=== PATIENT | female | born 1960 | race Caucasian/White ===

== ENCOUNTER 2020-12-18 14:24 | Emergency (ER) | payer BC, OTHER, SELFPAY ==
[2020-12-18] VITALS (8 sets, daily range): BP systolic 120–166; BP diastolic 67–94; PULSE 65–76; RESP 18–20; TEMP 36.6–36.8; O2SAT 95–99; BMI 31.3; BMI 31.4
[2020-12-18 14:53] LABS: Apearance,Urine Clear (Clear); Color,Urine Orange (Yellow)
[2020-12-18 14:54] LABS: Protein,Urine 3+ (Negative); Specific Gravity, Urine <= 1.005 (1.005-1.030)
[2020-12-18 14:56] LABS: Glucose,Urine (UA) 1+ (Negative); Ketones,Urine SMALL (Negative)
[2020-12-18 14:57] LABS: Bilirubin,Urine 1+ (Negative); Blood, Urine Trace (Negative); Urobilinogen,Urine 4 EU/dl (0.2)
[2020-12-18 14:58] LABS: UTC Leukocyte Esterase,Urine 3+ (Negative); UTC Nitrate,Urine Positive (Negative)
--- NOTE | 2020-12-18 15:50 | CT_ITS ---
PROCEDURE: CT ABDOMEN PELVIS WO CON CLINICAL INDICATION: lower abd pain and back pain COMPARISON: CT ABDPELW CT ABD PELVIS W/ CONTRAST from 08/22/2016 TECHNIQUE: Axial images obtained with sagittal and coronal reformats. All CT scans at the facility use one or more dose reduction, viz: automated exposure control, ma/kV adjustment per patient size (including targeted exams where dose is matched to indication, i.e. head), or iterative reconstruction technique. FINDINGS: LOWER THORAX: No acute finding ABDOMEN & PELVIS: The gallbladder is contracted. The liver, spleen, adrenal glands, and pancreas have an unremarkable unenhanced appearance. There are small right parapelvic renal cysts. There is left nephrolithiasis with a 2 mm stone in the left mid renal area and 3 mm stones in the lower pole of the left kidney. There is mild left hydronephrosis and hydroureter secondary to a 5 mm stone at the left ureterovesical junction. No intestinal obstruction or free air. No evidence of appendicitis. There is a small umbilical hernia which contains fat. There is mild haziness of the mesenteric fat with a few scattered small mesenteric lymph nodes. This finding is not significantly changed. There is colonic diverticulosis but no evidence of diverticulitis. No pelvic mass or abnormal fluid collection. There are degenerative changes of the lumbar spine with 5 mm anterolisthesis of L4 on L5. IMPRESSION: Left nephrolithiasis with 5 mm left ureterovesical junction stone and mild left-sided obstructive uropathy. Dictated by: Lee Bustos MD 12/18/2020 17:38 Lee Bustos MD in [place] 12/18/2020 17:38
[2020-12-18 16:04] LABS: Basophils # 0.1 K/mm3 (0-0.2); Basophils % 0.7 % (0.1-2.0); Eosinophils # 0.1 K/mm3 (0.0-0.4); Eosinophils % 1.3 % (0.1-12.0); Hematocrit 41.9 % (37.0-47.0); Hemoglobin 13.5 g/dL (12.2-16.2); Lymphocytes % 24.9 % (10-50); Mean Corpuscular HGB Conc 32.2 g/dL (31.8-35.4); Mean Corpuscular Hemoglobin 31.8 pg (27.0-31.2); Mean Corpuscular Volume 98.8 fl (81-99); Mean Platelet Volume 8.4 fl (7.4-10.4); Monocytes # 0.4 K/mm3 (0.1-1.0); Monocytes % 5.2 % (1.7-9.3); Neutrophils # 5.4 K/mm3 (1.8-7.8); Neutrophils % 67.8 % (37.0-80.0); Platelet Count 210 K/mm3 (142-424); Red Blood Count 4.25 M/mm3 (4.20-5.40); Red Cell Distribution Width 12.9 % (11.5-17.5); White Blood Count 7.9 K/mm3 (4.8-10.8)
[2020-12-18 16:08] LABS: Alanine Aminotransferase 23 U/L (12-78); Albumin Level 4.1 g/dl (3.5-5.0); Albumin/Globulin Ratio 1.6 (1.1-1.8); Alkaline Phosphatase 81 U/L (38-126); Anion Gap 8.3 mEq/L (5-15); Aspartate Amino Transferase 33 U/L (14-36); Bilirubin,Total 0.3 mg/dl (0.2-1.3); Blood Urea Nitrogen 15 mg/dl (7-17); Calcium 9.6 mg/dl (8.4-10.2); Carbon Dioxide 30 mmol/L (22.0-30.0); Chloride 103 mmol/L (98-107); Creatinine Clearance Estimated 85 mL/min (50-200); Estimated Glomerular Filt Rate 64 ml/min (>60); GFR (African American) 77 ML/MIN (>60); Globulin 2.5 g/dL (1.3-3.2); Glucose 108 mg/dl (74-100); Potassium 4.3 mmoL/L (3.5-5.1); Sodium 137 mmol/L (136-145); Total Protein,Serum 6.6 g/dl (6.3-8.2)
--- NOTE | 2020-12-18 17:26 | HMH.EDGENADL ---
ED Disposition Clinical Impression: Ureteral calculus Disposition: Home, Self-Care Condition on Discharge: Good Instructions: DI for Kidney Stones Additional Instructions: Flomax as prescribed. [place] as needed for pain. Zofran as needed for nausea. Follow-up with Dr. Fox as soon as possible, call tomorrow to make appointment. Additional instructions for KIDNEY STONE (URETERAL CALCULUS): Drink plenty of fluids. Strain your urine and save any stones you catch. Return immediately if you develop a fever or have uncontrollable vomiting or uncontrollable pain. Additional instructions for CONTROLLED SUBSTANCES: You have been prescribed a medication that is a controlled substance. Controlled substances include pain medications known as opiates and sedative nerve medications known as benzodiazepines. Tramadol, fioricet, and gabapentin are also controlled substances. Some common opiates include: Codeine (such as Tylenol #3) Hydrocodone (Vicodin, Lortab, Lorcet, [place]) Oxycodone (Percocet, Percodan, Oxycodone, Oxy IR) Some common benzodiazepines include: Diazepam (Valium) Lorazepam (Ativan) Alprazolam (Xanax) Clonazepam (Klonopin) Oxazepam (Serax) All of these controlled substances are highly addictive and frequently abused. Misuse can and frequently does lead to addiction as well as overdose and . Medication should be stored in a locked cabinet or other secure storage unit. Do not store the medication in a motor vehicle. Short term supplies, 3 days or less, are prescribed because of the highly addictive nature of the medication. Any of the controlled substance medication NOT taken should be disposed of properly and NOT SAVED. The recommended method of disposing of unused medications is: Place the medicines in a sealable plastic bag. If the medicine is a solid, crush it or add water to dissolve it. Add something undesirable (cat litter, coffee grounds, etc.) Dispose of sealed bag in household trash Do not flush or pour unused medicines down a sink or drain. Controlled substances should not be shared, given away or sold. Because of the addictive nature and frequent abuse, these medications are sometimes stolen. These medications should be kept in a safe place where they cannot be stolen. Do not keep them in your car or purse. Lost or stolen prescriptions for controlled substances WILL NOT BE REFILLED in this emergency department, regardless of whether a police report was filed. Prescriptions: Hydrocod/Acet 5/325 mg [[place] 5/325mg tablet] 1 tab PO Q6HP PRN #10 tab PRN Reason: Pain Transmission Status: Received by [id number] Tamsulosin HCl [Flomax 0.4mg capsule] 0.4 mg PO HS #10 cap.er.24h Transmission Status: Pending to [id number] Ondansetron [Zofran 4mg ODT] 4 mg PO TIDP PRN #10 tab.rapdis PRN Reason: Nausea And Vomiting Transmission Status: Pending to [id number] Referrals: Elizabeth Wiley APRN [Primary Care Provider] - - Critical Care Critical Care Time: No Attestation: On 12/18/20, the high probability of a clinically significant, sudden or life threatening deterioration of the following system(s) required my full and direct attention, intervention and personal management. The time I documented below is in addition to time spent performing reported procedures but includes the following listed in this critical care notation. Medical Decision Making - Jeevan Inquiry Pt receiving controlled substance: No Vital Signs: 12/18/20 14:41 12/18/20 15:00 Temperature 98 F 98.0 F Temperature Source Oral Oral Pulse Rate [Right] 72 74 Respiratory Rate 18 18 Blood Pressure [Right Arm] 120/94 H 146/67 H Blood Pressure Mean [Right Arm] 102 93 Blood Pressure Source [Right Arm] Automatic Cuff Automatic Cuff Blood Pressure Position [Right Arm] Sitting Sitting 02 Sat by Pulse Oximetry 95 97 Oxygen Delivery Method Room Air - Lab Data Lab Results
[2020-12-18 17:55] LABS: Microscopic, Urine URINE MICROSCOPIC (MICROSCOPIC)
[2020-12-18 18:00] LABS: Appearance,Urine CLEAR (Clear); Bilirubin,Urine Negative (Negative); Blood, Urine TRACE-I (Negative); Color,Urine ORANGE (Yellow); Glucose,Urine (UA) TRACE (Negative); Ketones,Urine TRACE (Negative); Leukocyte Esterase,Urine Negative (Negative); Nitrate,Urine POSITIVE (Negative); PH,Urine 5.5 (5.0-8.5); Protein,Urine TRACE (Negative); Specific Gravity, Urine 1.025 (1.005-1.030)
[2020-12-18 18:43] LABS: Bacteria,Urine Trace /lpf; RBC,Urine Occasional #/hpf (0-3); WBC,Urine Occasional #/hpf (0-3)
== END 2020-12-18 19:38 | disposition home or self-care (01) ==
LOC: UTC 14:39 → ER 15:07
PROVIDERS: Nurse Practitioner Family; Emergency Provider Emergency Medicine; PCP Nurse Practitioner
DX: N20.1 Calculus of ureter (principal); Z87.442 Personal history of urinary calculi
CPT/HCPCS: 74176; 80053; 81001; 81003; 85025; 87086; 96374; 96375; 99283; J2405

== ENCOUNTER 2020-12-21 11:03 | Emergency (ER) | payer BC, OTHER, SELFPAY ==
[2020-12-21] VITALS (10 sets, daily range): BP systolic 134–192; BP diastolic 70–109; PULSE 56–72; RESP 18–20; TEMP 36.4; O2SAT 97–100; BMI 36.6
[2020-12-21 11:26] LABS: Microscopic, Urine URINE MICROSCOPIC (MICROSCOPIC)
[2020-12-21 11:29] LABS: Appearance,Urine SL CLOUDY (Clear); Bilirubin,Urine Negative (Negative); Blood, Urine TRACE-I (Negative); Chloride 98 mmol/L (98-107); Color,Urine YELLOW (Yellow); Glucose,Urine (UA) Negative (Negative); Ketones,Urine Negative (Negative); Leukocyte Esterase,Urine Negative (Negative); Nitrate,Urine Negative (Negative); PH,Urine 5.5 (5.0-8.5); Potassium 3.9 mmoL/L (3.5-5.1); Protein,Urine Negative (Negative); Sodium 132 mmol/L (136-145); Specific Gravity, Urine >= 1.030 (1.005-1.030); Urobilinogen,Urine 0.2 EU/dl (0.2)
--- NOTE | 2020-12-21 11:30 | CT_ITS ---
PROCEDURE: CT ABDOMEN PELVIS WO CON CLINICAL INDICATION: left infected stone? COMPARISON: CT ABDPELW CT ABD PELVIS W/ CONTRAST from 08/22/[address] ABDOMEN PELVIS WO CON from 12/18/2020 TECHNIQUE: Axial images obtained with sagittal and coronal reformats. All CT scans at the facility use one or more dose reduction, viz: automated exposure control, ma/kV adjustment per patient size (including targeted exams where dose is matched to indication, i.e. head), or iterative reconstruction technique. FINDINGS: Lower thorax: No acute finding ABDOMEN: Liver: No masses or biliary dilatation. Gallbladder: Nondistended. No radio opaque stones. Pancreas: No masses or peripancreatic fluid collections. Spleen: unremarkable Adrenals: unremarkable Kidneys/ureters: . Again noted is somewhat extrarenal pelvis left side but there is mild hydronephrotic change and mild hydroureter proximally. There are tiny nonobstructing calculi lower pole. The 5 mm calculus is again seen sitting at the UV junction. ABDOMEN & PELVIS: Stomach bowel: Nondistended. No obvious mass or thickening. The duodenal sweep and small bowel appear normal. There is a moderate amount stool in the cecum and ascending colon, left colon is decompressed. Peritoneum: No abnormal fluid collections. No obvious inflammatory changes. No free air. There is a tiny umbilical hernia containing fat only. Lymph nodes: No enlarged lymph nodes apparent. Vasculature: There is minimal arteriosclerotic calcification of the infrarenal aorta but there is no aneurysm. Bones: There is grade 1 anterior listhesis L4 on L5 with endplate sclerosis and the listhesis likely is secondary to hypertrophic facet changes at L4-5 and there are hypertrophic facet changes at L5-S1 as well. PELVIS: Reproductive: The uterus is normal in size and in the midline. Bladder: Urinary bladder is partially decompressed, there is no free fluid in the pelvis. Appendix: Not definitely identified but there are no pericecal inflammatory changes. IMPRESSION: Persistent distal ureteral calculus sitting just at the UV junction basically unchanged in appearance and location from the previous exam causing mild obstructive uropathy of the left kidney Dictated by: Dr. Siva Shannon MD 12/21/2020 12:38 Dr. Siva Shannon MD in [place] 12/21/2020 12:38
[2020-12-21 11:31] LABS: Basophils % 0.3 % (0.1-2.0); Eosinophils # 0.1 K/mm3 (0.0-0.4); Eosinophils % 0.7 % (0.1-12.0); Hemoglobin 13.8 g/dL (12.2-16.2); Lymphocytes # 1.9 K/mm3 (0.7-4.5); Mean Corpuscular HGB Conc 32.9 g/dL (31.8-35.4); Mean Corpuscular Hemoglobin 31.6 pg (27.0-31.2); Mean Corpuscular Volume 96.1 fl (81-99); Monocytes # 0.4 K/mm3 (0.1-1.0); Monocytes % 4.2 % (1.7-9.3); Neutrophils # 7.4 K/mm3 (1.8-7.8); Neutrophils % 75.8 % (37.0-80.0); Platelet Count 227 K/mm3 (142-424); Red Blood Count 4.37 M/mm3 (4.20-5.40); Red Cell Distribution Width 13.1 % (11.5-17.5); White Blood Count 9.8 K/mm3 (4.8-10.8)
[2020-12-21 11:32] LABS: Anion Gap 11.9 mEq/L (5-15); Blood Urea Nitrogen 12 mg/dl (7-17); Calcium 9.1 mg/dl (8.4-10.2); Carbon Dioxide 26 mmol/L (22.0-30.0); Creatinine Clearance Estimated 85 mL/min (50-200); Estimated Glomerular Filt Rate 85 ml/min (>60); GFR (African American) 103 ML/MIN (>60); Glucose 126 mg/dl (74-100)
--- NOTE | 2020-12-21 11:32 | HMH.EDGENADL ---
ED Disposition Clinical Impression: Ureteral calculus, Intractable pain Disposition: Xfer Short-Term Hosp Condition on Discharge: Fair - Critical Care Critical Care Time: No Attestation: On 12/21/20, the high probability of a clinically significant, sudden or life threatening deterioration of the following system(s) required my full and direct attention, intervention and personal management. The time I documented below is in addition to time spent performing reported procedures but includes the following listed in this critical care notation. Medical Decision Making - Medical Records Medical records reviewed: Yes: I reviewed the patient's medical records. - Jeevan Inquiry Pt receiving controlled substance: No Vital Signs: 12/21/20 11:04 12/21/20 11:28 Temperature 97.6 F Temperature Source Oral Pulse Rate [Left Radial] 66 Respiratory Rate 20 Blood Pressure [Right Arm] 174/82 H Blood Pressure Mean [Right Arm] 112 Blood Pressure Source [Right Arm] Automatic Cuff Blood Pressure Position [Right Arm] Sitting 02 Sat by Pulse Oximetry 100 Oxygen Delivery Method Room Air - Lab Data Lab results reviewed: Yes: I reviewed the patient's lab results. Lab Results 12/21/20 11:18: Urine Color Yellow, Urine Appearance Sl cloudy, Urine pH 5.5, Ur Specific [place] >= 1.030, Urine Protein Negative, Urine Glucose (UA) Negative, Urine Ketones Negative, Urine Blood Trace-i, Urine Nitrate Negative, Urine Bilirubin Negative, Urine Urobilinogen 0.2, Ur Leukocyte Esterase Negative, Urine RBC Occasional, Urine WBC None, Ur Squamous Epith Cells 5-10, Urine Bacteria 1+ 12/21/20 11:18: WBC 9.8, RBC 4.37, Hgb 13.8, Hct 42.0, MCV 96.1, MCH 31.6 H, MCHC 32.9, RDW 13.1, Plt Count 227, MPV 8.0, Neut % (Auto) 75.8, Lymph % (Auto) 19.0, Otoe % (Auto) 4.2, Eos % (Auto) 0.7, Baso % (Auto) 0.3, Neut # (Auto) 7.4, Lymph # (Auto) 1.9, Otoe # (Auto) 0.4, Eos # (Auto) 0.1, Baso # (Auto) 0.0 12/21/20 11:18: Sodium 132 L, Potassium 3.9, Chloride 98, Carbon Dioxide 26, Anion Gap 11.9, BUN 12, Creatinine 0.70 D, Estimated Creat Clear 85, Estimated GFR 85, Est GFR ( Amer) 103 D, Glucose 126 H, Calcium 9.1 Result diagrams: 12/21/20 11:18 12/21/20 11:18 Orders (Tests/Meds): ED MEDICATIONS Discontinued Medications Generic Name Dose Route Start Last Admin Trade Name Robe PRN Reason Stop Dose Admin Hydromorphone HCl 1 mg 12/21/20 12:35 12/21/20 12:36 Hydromorphone 2mg/Ml Syringe IV 12/21/20 12:36 1 mg ONCE ONE Administration Sodium Chloride 1,000 mls @ 999 mls/hr 12/21/20 11:15 12/21/20 11:35 Sod Chlor 0.9% 1000ml Bag IV 12/21/20 12:15 999 mls/hr .Q1H1M WILD Administration Ketorolac Tromethamine 30 mg 12/21/20 11:34 12/21/20 11:35 Ketorolac 30mg/Ml Vial IV 12/21/20 11:35 30 mg ONCE ONE Administration Morphine Sulfate 4 mg 12/21/20 11:14 12/21/20 11:35 Morphine 4mg/Ml Syringe IV 12/21/20 11:15 4 mg ONCE ONE Administration Ondansetron HCl 4 mg 12/21/20 11:14 12/21/20 11:35 Ondansetron 4mg/2ml Vial IV 12/21/20 11:15 4 mg ONCE ONE Administration Ondansetron HCl 4 mg 12/21/20 12:35 12/21/20 12:36 Ondansetron 4mg/2ml Vial IV 12/21/20 12:36 4 mg ONCE ONE Administration - CT Data CT Scan: Abdomen, Pelvis Time Received: 12:30 Findings Narrative: 5 mm left UVJ stone with no change in position Medical Decision Narrative: Patient with refractory pain secondary to 5 mm left UVJ stone. No signs of infection in the urine. Given Toradol initially, but ultimately requiring Dilaudid and still in pain. No urology coverage here for the weekend, so I have called Dr. Lemon at [facility]. He and Dr. Chavez accept the patient there for further management and treatment. General Adult HPI - General Chief complaint: PAIN Stated complaint: possible kidney stones Time Seen by Provider: 12/21/20 11:32 Mode of Arrival: Ambulatory Limitations: No Limitations
[2020-12-21 11:54] LABS: Bacteria,Urine 1+ /lpf; RBC,Urine Occasional #/hpf (0-3)
--- NOTE | 2020-12-21 12:37 | PC.NURSE ---
PAIN CAME BACK 10/10 W/ VOMITING PT WAS GIVEN DILAUDID 1MG AND BARRETT AND IS RESTING NOW AT BEDSIDE
--- NOTE | 2020-12-21 13:44 | PC.NURSE ---
UROLOGY AT [facility] HAS ACCEPTED PT WAITING ON THE HOSPITALIST TO CALL BACK
--- NOTE | 2020-12-21 14:28 | PC.NURSE ---
hospitalist at [facility] accepted pt, facesheet sent
[2020-12-21 15:11] LABS: Coronavirus 19 IgG Antibody Positive (Negative); Coronavirus 19 IgM Antibody Negative (Negative)
--- NOTE | 2020-12-21 18:14 | PC.NURSE ---
pt states pain is starting to come back , 01/05 new orders for pain meds
--- NOTE | 2020-12-21 18:44 | PC.NURSE ---
Report given to Emmett HARRIS at [facility]
--- NOTE | 2020-12-21 19:11 | PC.NURSE ---
Report given to urologist at [facility]
== END 2020-12-21 19:15 | disposition short-term general hospital (02) ==
PROVIDERS: Emergency Provider Emergency Medicine; PCP Nurse Practitioner
DX: N13.2 Hydronephrosis with renal and ureteral calculous obstruction (principal); Z87.442 Personal history of urinary calculi
CPT/HCPCS: 74176; 80048; 81001; 85025; 86328; 96365; 96375; 96376; 99284; J2405

== ENCOUNTER → 2022-06-19 07:12 | Outpatient (CLI) | payer BC, SELFPAY ==
[2022-06-19 18:43] LABS: Chol/HDL Ratio 4.2 (1-3.5); Cholesterol 269 mg/dl (140-200); HDL Cholesterol 64 mg/dl (40-60); Triglycerides 119 mg/dl (30-150); VLDL Cholesterol 24 mg/dL (0-40)
[2022-06-19 18:54] LABS: Direct LDL Cholesterol 174.23 mg/dL (100-129)
== END ==
PROVIDERS: PCP Nurse Practitioner; Visit Provider Nurse Practitioner
DX: E78.5 Hyperlipidemia, unspecified (principal)
CPT/HCPCS: 80061

== ENCOUNTER → 2022-10-07 08:50 | Outpatient (CLI) | payer BC, SELFPAY ==
[2022-10-07 19:31] LABS: Alanine Aminotransferase 23 U/L (12-78); Albumin Level 4.2 g/dl (3.5-5.0); Albumin/Globulin Ratio 1.8 (1.1-1.8); Alkaline Phosphatase 87 U/L (38-126); Anion Gap 10.4 mEq/L (5-15); Aspartate Amino Transferase 28 U/L (14-36); Bilirubin,Total 0.5 mg/dl (0.2-1.3); Blood Urea Nitrogen 12 mg/dl (7-17); Calcium 9.3 mg/dl (8.4-10.2); Carbon Dioxide 31 mmol/L (22.0-30.0); Chloride 102 mmol/L (98-107); Chol/HDL Ratio 4.2 (1-3.5); Cholesterol 242 mg/dl (140-200); Estimated Glomerular Filt Rate 85 ml/min (>60); GFR (African American) 102 ML/MIN (>60); Globulin 2.4 g/dL (1.3-3.2); Glucose 93 mg/dl (74-100); HDL Cholesterol 57 mg/dl (40-60); Potassium 4.4 mmoL/L (3.5-5.1); Sodium 139 mmol/L (136-145); Total Protein,Serum 6.6 g/dl (6.3-8.2); Triglycerides 146 mg/dl (30-150); VLDL Cholesterol 29 mg/dL (0-40)
[2022-10-07 19:41] LABS: Direct LDL Cholesterol 137.29 mg/dL (100-129)
[2022-10-07 20:01] LABS: Thyroid Stimulating Hormone 0.56 uIU/mL (0.465-4.68)
== END ==
PROVIDERS: PCP Nurse Practitioner; Visit Provider Nurse Practitioner
DX: E78.5 Hyperlipidemia, unspecified (principal); F41.8 Other specified anxiety disorders
CPT/HCPCS: 80053; 80061; 84443

== ENCOUNTER → 2022-12-25 06:35 | Outpatient (CLI) | payer BC, SELFPAY ==
[2022-12-25 19:16] LABS: Chol/HDL Ratio 4.1 (1-3.5); Cholesterol 285 mg/dl (140-200); HDL Cholesterol 70 mg/dl (40-60); Triglycerides 123 mg/dl (30-150); VLDL Cholesterol 25 mg/dL (0-40)
[2022-12-25 19:26] LABS: Direct LDL Cholesterol 174.65 mg/dL (100-129)
== END ==
PROVIDERS: PCP Nurse Practitioner; Visit Provider Nurse Practitioner
DX: E78.5 Hyperlipidemia, unspecified (principal)
CPT/HCPCS: 80061

== ENCOUNTER → 2023-04-10 11:00 | Outpatient (CLI) | payer BC, SELFPAY ==
[2023-04-10 18:33] LABS: Alanine Aminotransferase 25 U/L (12-78); Albumin Level 4.1 g/dl (3.5-5.0); Albumin/Globulin Ratio 1.9 (1.1-1.8); Alkaline Phosphatase 88 U/L (38-126); Anion Gap 9.7 mEq/L (5-15); Aspartate Amino Transferase 30 U/L (14-36); Bilirubin,Total 0.5 mg/dl (0.2-1.3); Blood Urea Nitrogen 17 mg/dl (7-17); Carbon Dioxide 30 mmol/L (22.0-30.0); Chloride 107 mmol/L (98-107); Chol/HDL Ratio 2.3 (1-3.5); Cholesterol 183 mg/dl (140-200); Estimated Glomerular Filt Rate 84 ml/min (>60); GFR (African American) 102 ML/MIN (>60); Globulin 2.2 g/dL (1.3-3.2); Glucose 95 mg/dl (74-100); HDL Cholesterol 81 mg/dl (40-60); Potassium 4.7 mmoL/L (3.5-5.1); Sodium 142 mmol/L (136-145); Total Protein,Serum 6.3 g/dl (6.3-8.2); Triglycerides 64 mg/dl (30-150); VLDL Cholesterol 13 mg/dL (0-40)
== END ==
PROVIDERS: PCP Nurse Practitioner; Visit Provider Nurse Practitioner
DX: E78.5 Hyperlipidemia, unspecified (principal)
CPT/HCPCS: 80053; 80061

== ENCOUNTER 2023-10-26 20:45 | Outpatient (CLI) | payer BC, SELFPAY ==
[2023-10-26 19:28] LABS: Basophils # 0.1 K/mm3 (0-0.2); Basophils % 0.9 % (0.1-2.0); Eosinophils # 0.1 K/mm3 (0.0-0.4); Eosinophils % 1.5 % (0.1-12.0); Hematocrit 47.2 % (37.0-47.0); Hemoglobin 15.5 g/dL (12.2-16.2); Lymphocytes # 2.4 K/mm3 (0.7-4.5); Lymphocytes % 35.4 % (10-50); Mean Corpuscular HGB Conc 32.7 g/dL (31.8-35.4); Mean Corpuscular Hemoglobin 32.6 pg (27.0-31.2); Mean Corpuscular Volume 99.4 fl (81-99); Mean Platelet Volume 9.7 fl (7.4-10.4); Monocytes # 0.4 K/mm3 (0.1-1.0); Monocytes % 5.3 % (1.7-9.3); Neutrophils # 3.8 K/mm3 (1.8-7.8); Neutrophils % 56.9 % (37.0-80.0); Platelet Count 285 K/mm3 (142-424); Red Blood Count 4.75 M/mm3 (4.20-5.40); Red Cell Distribution Width 13.1 % (11.5-17.5); White Blood Count 6.6 K/mm3 (4.8-10.8)
[2023-10-26 20:09] LABS: Alanine Aminotransferase 27 U/L (12-78); Albumin Level 3.9 g/dl (3.5-5.0); Albumin/Globulin Ratio 1.8 (1.1-1.8); Alkaline Phosphatase 74 U/L (38-126); Anion Gap 8.6 mEq/L (5-15); Aspartate Amino Transferase 29 U/L (14-36); Bilirubin,Total 0.5 mg/dl (0.2-1.3); Blood Urea Nitrogen 14 mg/dl (7-17); Calcium 9.5 mg/dl (8.4-10.2); Carbon Dioxide 34 mmol/L (22.0-30.0); Chloride 101 mmol/L (98-107); Cholesterol 186 mg/dl (140-200); Estimated Glomerular Filt Rate 84 ml/min (>60); GFR (African American) 102 ML/MIN (>60); Globulin 2.2 g/dL (1.3-3.2); Glucose 98 mg/dl (74-100); HDL Cholesterol 62 mg/dl (40-60); Potassium 4.6 mmoL/L (3.5-5.1); Sodium 139 mmol/L (136-145); Total Protein,Serum 6.1 g/dl (6.3-8.2); Triglycerides 78 mg/dl (30-150); VLDL Cholesterol 16 mg/dL (0-40)
[2023-10-26 20:22] LABS: Direct LDL Cholesterol 94.21 mg/dL (100-129)
[2023-10-26 20:59] LABS: Vitamin B12 793 pg/mL (239-931)
[2023-10-26 23:55] LABS: Hemoglobin A1C 5.5 % (4.0-6.0)
== END 2023-10-26 23:59 ==
LOC: LAB.DROPOF 20:45
PROVIDERS: PCP Nurse Practitioner; Visit Provider Nurse Practitioner
DX: E78.5 Hyperlipidemia, unspecified (principal); F41.8 Other specified anxiety disorders; Z79.899 Other long term (current) drug therapy
CPT/HCPCS: 80053; 80061; 82607; 83036; 84443; 85025

== ENCOUNTER 2024-03-30 11:11 | Outpatient (CLI) | payer MEDICARE, SELFPAY ==
[2024-03-30 20:46] LABS: Alanine Aminotransferase 25 U/L (12-78); Albumin Level 4.3 g/dl (3.5-5.0); Albumin/Globulin Ratio 1.6 (1.1-1.8); Alkaline Phosphatase 79 U/L (38-126); Aspartate Amino Transferase 31 U/L (14-36); Bilirubin,Total 0.7 mg/dl (0.2-1.3); Blood Urea Nitrogen 21 mg/dl (7-17); Calcium 9.8 mg/dl (8.4-10.2); Carbon Dioxide 32 mmol/L (22.0-30.0); Chloride 100 mmol/L (98-107); Chol/HDL Ratio 2.8 (1-3.5); Cholesterol 226 mg/dl (140-200); Estimated Glomerular Filt Rate 72 ml/min (>60); GFR (African American) 87 ML/MIN (>60); Globulin 2.7 g/dL (1.3-3.2); Glucose 106 mg/dl (74-100); HDL Cholesterol 81 mg/dl (40-60); Sodium 140 mmol/L (136-145); Triglycerides 124 mg/dl (30-150); VLDL Cholesterol 25 mg/dL (0-40)
[2024-03-30 20:57] LABS: Direct LDL Cholesterol 109.29 mg/dL (100-129)
== END 2024-03-30 23:59 | disposition home or self-care (01) ==
LOC: LAB.DROPOF 03-31 11:12
PROVIDERS: PCP Nurse Practitioner; Visit Provider Nurse Practitioner
DX: E78.5 Hyperlipidemia, unspecified (principal)
CPT/HCPCS: 80053; 80061

== ENCOUNTER 2024-09-20 13:00 | Outpatient (RCR) | payer MEDICARE, SELFPAY ==
--- NOTE | 2024-09-09 17:27 | HMH.PTOPEV ---
PT Outpatient Evaluation Rehab PT Outpatient Evaluation Start: 09/09/24 17:01 Freq: Status: Active Protocol: Document 09/09/24 17:02 KRYSTA (Rec: 09/09/24 17:27 KRYSTA [id number]) E-signed By Kentrell Van, PT Outpatient Therapy Subjective History Subjective History Patient is a 64 year old female presenting to outpatient PT with reports of LS pain with associated LLE radicular symptoms. Symptoms of insidious onset starting approx 1 month. No recent imaging to report. SI special tests negative. Comorbidities include hx of HL and R ankle ORIF. New diagnosis of cancer in past 12 No months? Chief Complaint Pain,Stiff,Paresthesia Symptom Type Ache,Sharp,Dull Symptoms Relieved By Rest/Positioning,Prescription Meds Prior Functional Limitations None Current Functional Limitations Lifting,Housework,Sleeping, Standing,Recreation Activity, Walking,Stairs,Balance,Bending /Stooping Symptom Description Constant but Variable, Intermittent Level of pain today (0-10) 6 Pain scale - at its best (0-10) 0 Pain scale - at its worst (0-10) 8 Lumbopelvic Eval Posture Thoracic Spine Posture Standing Position Increased Kyphosis Lumbar Spine Posture Standing Position Increased Lordosis Palapation tenderness bilateral lumbar spinal tenderness Yes: L 4-S1 Accessory Movement L4 bilateral L5 bilateral S1 bilateral Range of Motion Lumbar Spine Active Flexion Range of 72 Motion (degrees) Lumbar Spine Active Extension Range of 8 Motion (degrees) Left Lumbar Spine Lateral Flexion Active 10 Range of Motion (degrees) Right Lumbar Spine Lateral Flexion 8 Active Range of Motion (degrees) Lumbar Spine ROM Limitations Soft Tissue Tightness,Bony Restriction Manual Muscle Test Bilateral Knee Extension Strength Grade 4- Good- Knee Flexion Strength Grade 4 Good Hip Flexion Strength Grade 4- Good- Extensor Hallucis Longus Strength Grade 4 Good Ankle Dorsiflexion Strength Grade 4 Good Gastronemius/Soleus Strength Grade 4 Good Altered Sensation Left LE Dermatome Level L5,S1 Comment intermittent NT Special Tests Hip Sanchez (EBER) Test Positive Left,Positive Right Hip Jyoti Test Positive Left,Positive Right Hip Piriformis Test Positive Left,Positive Right Michael Test Positive Sacroiliac Joint Compression Test Negative Left,Negative Right Sacroiliac Joint Distraction Test Negative Left,Negative Right Lumbar [place] Deane Distraction Test/Manual Positive Traction Oswestry Index Section 1 Pain Intensity The pain comes and goes and is severe Section 2 Personal Care (Washing,Dresing) increase the pain, but I manage not to change my way of doing it Section 3 Lifting lifting heavy weights off the floor, but I can manage light to medium Section 4 Walking I cannot walk more than one mile wihtout increasing pain Section 5 Sitting I can sit in any chair for as long as I like Section 6 Standing I cannot stand more than 10 minutes without increasing pain Section 7 Sleeping Because of pain, my normal nights sleep is less than 2 hours sleep Section 8 Social Life Pain has restricted my social life and I do not go out often Section 9 Traveling Pain restricts me to short necessary journeys under 30 minutes Section 10 Changing Degreee of Pain My pain is neither getting better or worse Score and Risk Level Oswestry Sc 30 Oswestry Risk Level Severe Disability Outpatient Therapy Assessment Impairments Problems/Impairmments Palpation Tenderness,Impaired Range of Motion,Impaired Strength,Impaired Walking, Impaired Standing,Impaired Lifting,Impaired Household Care,Impaired Stair Climbing, Impaired Incline Stepping, Impaired Stepping on Uneven Surface,Impaired Bending, Impaired Recreational Activities,Impaired Work Activities,Subjective C/O Pain Prognosis Rehab Potential Good Clinical Impression Consistent with Diagnosis Yes Short Term Goals Number of Weeks 2 Decrease Subjective C/O Pain Yes: 5/10 at worst Patient to be Ind w/ HEP Yes Gallery Or Museum Attendant Goals Number of Weeks 4-6 Decreased Palpation Tenderness Yes: 1/4 Increase Range of Motion Yes: WNL Increase Strength Yes: BLE 5/5 Increase Ability to Walk Yes: 30 min without difficulty Increase Ability to Stand Yes: Improve Ability For Household Care Yes Improve Tolerance to Work Activities Yes Improve Oswestry Score Yes: mild disability Outpatient Therapy Plan of Care Treatment Plan May Include Therapeutic Exercise Including Home Yes Exercise Program Manual Therapy Techniques Yes Neuromuscular Re-education Yes Therapeutic Activities to Return to Yes Previous Functional/Work Level Gait Training Yes ADL/Self Care Education Yes Mechanical Traction Yes Dry Needling Yes Thermal Modalities Yes Electrical Stimulation Yes Ultrasound/Phonophoresis Yes Iontophoresis Yes Orthotics/Bracing/Splinting Yes Massage Yes Eval/Re-Eval Yes Frequency Times per week 2-3 Duration Number of Weeks 4-6 Addendums This patient is a candidate for social No or vocational rehab? Patient/Guardian verbally acknowledges Yes understanding of treatment program and consents to further treatment? Patient/Guardian verbally acknowledges Yes understanding of diagnosis, prognosis and goals for treatment? Eval Complexity PT Charges 30784 - Moderate Complexity Shoulder/Elbow Eval Shoulder Objective Measurements Elbow Objective Measurements PHYSICIAN CERTIFICATION: I certify the specified therapy services for Jacinda Calle are required, authorized, and reviewed every 30 days.
== END 2024-09-20 23:59 | disposition home or self-care (01) ==
LOC: PT 13:00
PROVIDERS: PCP Nurse Practitioner Family; Visit Provider Nurse Practitioner Family
DX: M79.605 Pain in left leg (principal); M54.50 Low back pain, unspecified
CPT/HCPCS: 97014; 97110; 97163; 97530; G0283

== ENCOUNTER 2024-10-04 10:00 | Outpatient (RCR) | payer MEDICARE, SELFPAY | END 2024-10-04 23:59 | disposition home or self-care (01) | LOC: PT 10:00 | PROVIDERS: PCP Nurse Practitioner Family; Visit Provider Nurse Practitioner Family | DX: M54.50 Low back pain, unspecified (principal); M79.605 Pain in left leg | CPT/HCPCS: 97012; 97014; G0283 ==

== ENCOUNTER 2024-11-02 09:11 | Outpatient (CLI) | payer MEDICARE, SELFPAY ==
[2024-11-02 18:51] LABS: Basophils # 0.1 K/mm3 (0-0.2); Basophils % 1.1 % (0.1-2.0); Eosinophils # 0.1 K/mm3 (0.0-0.4); Eosinophils % 1.5 % (0.1-12.0); Hematocrit 45.1 % (37.0-47.0); Hemoglobin 14.5 g/dL (12.2-16.2); Lymphocytes # 1.6 K/mm3 (0.7-4.5); Lymphocytes % 28.7 % (10-50); Mean Corpuscular HGB Conc 32.2 g/dL (31.8-35.4); Mean Corpuscular Hemoglobin 31.7 pg (27.0-31.2); Mean Corpuscular Volume 98.5 fl (81-99); Mean Platelet Volume 10.9 fl (7.4-10.4); Monocytes # 0.4 K/mm3 (0.1-1.0); Neutrophils # 3.3 K/mm3 (1.8-7.8); Neutrophils % 60.5 % (37.0-80.0); Platelet Count 247 K/mm3 (142-424); Red Blood Count 4.58 M/mm3 (4.20-5.40); Red Cell Distribution Width 13.2 % (11.5-17.5); White Blood Count 5.5 K/mm3 (4.8-10.8)
[2024-11-02 19:15] LABS: Microalbumin/Creatinine Ratio 14.6
[2024-11-02 19:27] LABS: Alanine Aminotransferase 29 U/L (12-78); Albumin Level 4.2 g/dl (3.5-5.0); Albumin/Globulin Ratio 2.1 (1.1-1.8); Alkaline Phosphatase 77 U/L (38-126); Anion Gap 9.1 mEq/L (5-15); Aspartate Amino Transferase 32 U/L (14-36); Bilirubin,Total 0.4 mg/dl (0.2-1.3); Blood Urea Nitrogen 17 mg/dl (7-17); Calcium 9.6 mg/dl (8.4-10.2); Carbon Dioxide 33 mmol/L (22.0-30.0); Chloride 103 mmol/L (98-107); Chol/HDL Ratio 2.4 (1-3.5); Cholesterol 182 mg/dl (140-200); Estimated Glomerular Filt Rate 84 ml/min (>60); GFR (African American) 102 ML/MIN (>60); Glucose 101 mg/dl (74-100); HDL Cholesterol 75 mg/dl (40-60); Potassium 4.1 mmoL/L (3.5-5.1); Sodium 141 mmol/L (136-145); Total Protein,Serum 6.2 g/dl (6.3-8.2); Triglycerides 87 mg/dl (30-150); VLDL Cholesterol 17 mg/dL (0-40)
[2024-11-02 19:31] LABS: Creatinine,Urine Random 242 mg/dL (Not Estab.)
[2024-11-02 19:38] LABS: Direct LDL Cholesterol 74.32 mg/dL (100-129)
[2024-11-02 20:00] LABS: Thyroid Stimulating Hormone 0.63 uIU/mL (0.465-4.68)
[2024-11-02 20:19] LABS: Vitamin B12 629 pg/mL (239-931)
[2024-11-02 20:57] LABS: Hemoglobin A1C 5.4 % (4.0-6.0)
== END 2024-11-02 23:59 | disposition home or self-care (01) ==
LOC: LAB.DROPOF 11-03 13:03
PROVIDERS: PCP Nurse Practitioner; Visit Provider Nurse Practitioner
DX: Z13.1 Encounter for screening for diabetes mellitus (principal); E78.5 Hyperlipidemia, unspecified; F41.9 Anxiety disorder, unspecified; F33.1 Major depressive disorder, recurrent, moderate; Z68.32 Body mass index [BMI] 32.0-32.9, adult; E66.9 Obesity, unspecified
CPT/HCPCS: 80053; 80061; 82043; 82570; 82607; 83036; 84443; 85025

== ENCOUNTER 2024-11-03 13:24 | Outpatient (CLI) | payer MEDICARE, SELFPAY ==
--- NOTE | 2024-11-03 13:29 | XR_ITS ---
FINAL REPORT CLINICAL HISTORY: low back pain COMPARISON: None FINDINGS: 3 views of the lumbar spine were obtained. There is no evidence of fracture. There is no malalignment. The vertebrae are normal in height. There are advanced hypertrophic changes of degenerative disc disease at L4-5 and L5-S1. Endplate sclerosis is noted. There is prominent anterior osteophyte formation. There is marked facet sclerosis lower lumbar spine. No paraspinous soft tissue abnormalities identified. IMPRESSION: Advanced degenerative disc disease L4-5 and L5-S1. Reviewed, Interpreted and Dictated by Erasto Ocasio MD Transcribed by Nellie De Leon Authenticated and [facility]
== END 2024-11-03 23:59 | disposition home or self-care (01) ==
LOC: RAD 13:25
PROVIDERS: PCP Nurse Practitioner; Visit Provider Nurse Practitioner
DX: M54.41 Lumbago with sciatica, right side (principal)
CPT/HCPCS: 72100